=== PATIENT | male | born 1995 | race Caucasian/White ===

== ENCOUNTER 2025-04-06 13:39 | Emergency (ER) | payer SELFPAY ==
[~2025-04-06] VITALS: Ht 177.8 cm; Wt 90.9 kg
[2025-04-06 13:41] VITALS: BP 136/78; PULSE 70; RESP 15; TEMP 97.4; O2SAT 100
--- NOTE | 2025-04-06 13:45 | Physician Documentation ---
History of Present Illness ~ Chief Complaint: Anxiety Stated Complaint: CHEST WALL PAIN HPI 29-year-old presents with symptomatic anxiety. Complains of heart palpitations some chest pain and general illness. Medication Reconciliation Allergies: Coded Allergies: No Known Allergies (Unverified , 04/06/25) Review of Systems All Other Systems at this time: Reviewed and Negative ROS As stated above in the HPI, otherwise all systems are reviewed and negative. Physical Exam Vital Signs: Temperature: 97.4, Source: Temporal, Heart Rate: 70, Respiratory Rate: 15, BP: 136/78, Pulse Oximetry: 100, Weight: 90.910 Physical Exam General: Alert, no apparent distress. HEENT: PERRL, EOMI, no injection, moist mucous membranes. Respiratory: Lungs clear, no respiratory distress. Cardiovascular: Regular rate and rhythm, no murmurs. Neurologic: Oriented x4. Psychiatric: Normal mood and affect. Skin: Normal color, warm and dry. No edema, no ecchymosis. Progress Results/Orders Results/Orders Vital Signs 04/06/25 13:41 Temp 97.4 Pulse 70 Resp 15 B/P (MAP) 136/78 Pulse Ox 100 Medical Decision Making Findings Eloped Departure Disposition: 07 LEFT AWOL/ELOPED Impression: Primary Impression: Anxiety Referrals: NO PRIMARY CARE PROVIDER (PCP) Signature Scribe Signature: r Attestation: Scribed for Emergency,Department by Victoriano Hunt - JEN . 04/06/25 18:23 VICTORIANO HUNT NP Apr 06, 2025 13:45
== END 2025-04-06 20:34 | disposition left against medical advice (07) ==
LOC: ER 13:40
DX: F41.9 Anxiety disorder, unspecified (principal); R00.2 Palpitations; R07.9 Chest pain, unspecified
CPT/HCPCS: 99283